=== PATIENT | male | born 1950 | race Caucasian/White ===

== ENCOUNTER 2019-09-25 11:00 | Outpatient (RCR) | payer SELFPAY | END 2019-10-25 00:01 | LOC: CR 11:00 | PROVIDERS: Family Provider Family Medicine; PCP Family Medicine; Visit Provider Family Medicine | DX: I25.2 Old myocardial infarction (principal) ==

== ENCOUNTER 2019-11-02 13:55 | Outpatient (RCR) | payer SELFPAY | END 2019-11-25 23:59 | disposition home or self-care (01) | LOC: CR 13:55 | PROVIDERS: Family Provider Family Medicine; PCP Family Medicine; Referring Provider Internal Medicine Cardiovascular Disease; Visit Provider Internal Medicine Cardiovascular Disease | DX: I25.2 Old myocardial infarction (principal) ==

== ENCOUNTER 2019-11-28 14:51 | Outpatient (RCR) | payer SELFPAY | END 2019-12-24 23:59 | disposition home or self-care (01) | LOC: CR 14:51 | PROVIDERS: Family Provider Family Medicine; PCP Family Medicine; Referring Provider Internal Medicine Cardiovascular Disease; Visit Provider Internal Medicine Cardiovascular Disease | DX: I25.2 Old myocardial infarction (principal) ==

== ENCOUNTER 2019-12-27 08:34 | Outpatient (RCR) | payer SELFPAY | END 2020-01-24 23:59 | disposition home or self-care (01) | LOC: CR 08:34 | PROVIDERS: Family Provider Family Medicine; PCP Family Medicine; Referring Provider Internal Medicine Cardiovascular Disease; Visit Provider Internal Medicine Cardiovascular Disease | DX: I25.2 Old myocardial infarction (principal) ==

== ENCOUNTER 2020-02-28 10:02 | Outpatient (CLI) | payer MEDICARE, OTHER, SELFPAY ==
--- NOTE | 2020-02-28 10:46 | XR_ITS ---
WS: [id number] XR KUB [id number] REASON FOR EXAM: RENAL CALCULI FINDINGS: The small 3 mm stone in the left kidney has not changed in position since earlier exam of A pril 2017. There is degenerate changes throughout the lumbar spine. There is nonspecific gas and fecal stasis throughout the colon. No air-fluid levels. The bony pelvis was normal. XR/XR KUB [id number] IMPRESSION: Unchanged small calcified density in the left kidney
== END 2020-02-28 10:03 | disposition home or self-care (01) ==
LOC: RAD 10:05
PROVIDERS: Family Provider Family Medicine; PCP Family Medicine; Visit Provider Urology
DX: N20.0 Calculus of kidney (principal); N20.9 Urinary calculus, unspecified
CPT/HCPCS: 74018; 81001

== ENCOUNTER 2020-03-26 15:15 | Outpatient (RCR) | payer SELFPAY | END 2020-04-24 23:59 | disposition home or self-care (01) | LOC: CR 15:15 | PROVIDERS: Family Provider Family Medicine; PCP Family Medicine; Referring Provider Internal Medicine Cardiovascular Disease; Visit Provider Internal Medicine Cardiovascular Disease | DX: I25.2 Old myocardial infarction (principal) ==

== ENCOUNTER 2020-03-27 11:01 | Outpatient (CLI) | payer MEDICARE, OTHER, SELFPAY ==
--- NOTE | 2020-03-27 | CT_ITS ---
WS: [id number] CT HEAD WITH AND WITHOUT CONTRAST HISTORY: NEW ONSET OF LOREDO'S WHILE ON DOAC TECHNIQUE: Noncontrast 2.5 mm axial images obtained from the vertex to the skull base. Additional derrell ging performed at 2.5 mm axial images status post IV contrast. Bone and soft tissue windows are revie wed. All CT scans at [facility] use at least one of these dose optimization techniques: a utomated exposure control; mA and/or kV adjustment per patient size (includes targeted exams where do se is matched to clinical indication); or iterative reconstruction. CONTRAST: Visipaque 320; 95 mL IV. DLP: 1851.82 mGycm COMPARISON: None available. No acute intracranial hemorrhage, edema or midline shift. Very mild atrophy and chronic microvascular ischemic disease. No prior infarcts. No enhancing mass or vascular malformations identified. Dural venous sinuses are normally enhancing. There is mild ectasia of the vessels in the [place]. No aneurysm is identified. Poor opacifi cation of the distal RIGHT vertebral artery. This may be due to the motion artifact. Paranasal sinuses as visualized: Clear. Mastoid air cells: Clear. Calvarium and scalp: Intact. CT/CT head wo/w con [id number] IMPRESSION: 1. No acute intracranial hemorrhage or mass. 2. Mild atrophy and mild chronic microvascular ischemic disease. 3. Evaluation of the [place] and distal vertebral arteries limited by motion artifact. No abnormality identified.
[2020-03-27 12:18] LABS: Blood Urea Nitrogen 13 mg/dL (8-23)
[2020-03-27] MEDS: iodixanol 320 mg/mL 100mL Btl IV (12:19)
== END 2020-03-27 11:02 | disposition home or self-care (01) ==
LOC: RADWPI 11:06
PROVIDERS: Family Provider Family Medicine; PCP Family Medicine; Visit Provider Family Medicine
DX: R51 Headache (principal); I25.9 Chronic ischemic heart disease, unspecified; G31.9 Degenerative disease of nervous system, unspecified
CPT/HCPCS: 70470; 82565; 84520; Q9967

== ENCOUNTER 2020-04-25 | Outpatient (RCR) | payer SELFPAY | END 2020-05-25 23:00 | disposition home or self-care (01) | LOC: CR | PROVIDERS: Family Provider Family Medicine; PCP Family Medicine; Referring Provider Internal Medicine Cardiovascular Disease; Visit Provider Internal Medicine Cardiovascular Disease | DX: I25.2 Old myocardial infarction (principal) ==

== ENCOUNTER 2020-05-29 14:38 | Outpatient (RCR) | payer SELFPAY | END 2020-06-25 23:59 | disposition home or self-care (01) | LOC: CR 14:38 | PROVIDERS: Family Provider Family Medicine; PCP Family Medicine; Referring Provider Internal Medicine Cardiovascular Disease; Visit Provider Internal Medicine Cardiovascular Disease | DX: I25.2 Old myocardial infarction (principal) ==

== ENCOUNTER 2020-06-26 14:58 | Outpatient (RCR) | payer SELFPAY | END 2020-07-25 23:59 | disposition home or self-care (01) | LOC: CR 14:58 | PROVIDERS: Family Provider Family Medicine; PCP Family Medicine; Referring Provider Internal Medicine Cardiovascular Disease; Visit Provider Internal Medicine Cardiovascular Disease | DX: I25.2 Old myocardial infarction (principal) ==

== ENCOUNTER 2020-07-13 15:21 | Inpatient (IN) | payer MEDICARE, OTHER, SELFPAY ==
[2020-07-13] VITALS (12 sets, daily range): BP systolic 100–148; BP diastolic 68–86; PULSE 59–84; RESP 17–32; TEMP 36.6–37.4; O2SAT 91–94; BMI 27.6
--- NOTE | 2020-07-13 15:30 | XRR_ITS ---
PROCEDURE INFORMATION: Exam: XR Chest, 1 View Exam date and time: 07/13/2020 3:52 PM Age: 70 years old Clinical indication: Dyspnea; Patient HX: Covid symptoms TECHNIQUE: Imaging protocol: XR of the chest Views: 1 view. COMPARISON: CR Chest 1 [place] [id number] 08/24/2017 8:27 AM FINDINGS: Lungs: Parenchymal densities seen in the left lower lobe and in the right mid lung field these findings are new since prior examination and are consistent with pneumonia Pleural space: Unremarkable. No pleural effusion. No pneumothorax. Heart/Mediastinum: Unremarkable. No cardiomegaly. Bones/joints: Unremarkable. XR/XR chest 1V portable [id number] IMPRESSION: Bilateral pneumonia as noted.
--- NOTE | 2020-07-13 15:32 | ECG_ITS ---
[facility] Test Date: 2020-07-13 Pat Name: Alejandro Green Department: Room: Gender: Male [employer] Winder: : 1950 Requested By: Brenda Hua Order Number: [id number] Hilario MD: Deborah Ann M.D. Measurements Intervals [place] Rate: 84 P: 33 [place]: 140 QRS: -35 QRSD: 93 T: 52 QT: 390 QTc: 461 Interpretive Statements SINUS RHYTHM WITH FREQUENT VENTRICULAR PREMATURE COMPLEXES LEFT AXIS DEVIATION INCOMPLETE RIGHT BUNDLE BRANCH BLOCK MINIMAL VOLTAGE CRITERIA FOR LVH, CONSIDER NORMAL VARIANT MINIMAL ST DEPRESSION [0.025+ mV ST DEPRESSION] Compared to ECG 08/24/2017 12:01:14 Ventricular premature complex(es) now present ST (T wave) deviation now present Sinus bradycardia no longer present Electronically Signed On 07-14-2020 8:17:06 CDT by Deborah Ann M.D. [id number]
--- NOTE | 2020-07-13 15:38 | ED_ITS ---
HPI - SOB/Dyspnea General: Chief Complaint: Shortness of Breath/Dyspnea Stated Complaint: SOB/ POSSIBLE COVID Time Seen by Provider: 07/13/20 15:27 Source: patient and EMS Mode of arrival: EMS Limitations: no limitations History of Present Illness: HPI Narrative: Mr. Goodman is a nice 70-year-old male brought in from home with report of shortness of breath. Patient's is currently sick with the COVID-19 virus. Patient states he has a cough, sore throat and is short of breath. He also has nausea vomiting and diarrhea. He denies any abdominal pain. Symptoms been present for the past 5 days. He states they are getting progressively worse. Patient denies any fever that he is aware of. EMS reports that when they arrived and checked the patient's pulse ox he was 83% on room air. Patient states when he exerts himself his symptoms are worse. Associated symptoms: Deny abdominal pain, chest congestion, chest pain, diaphoresis, dizziness, extremity pain, fever(s), hemoptysis, lightheadedness, nausea, orthopnea, palpitations, syncope or vomiting Review of Systems Const: Reports: malaise; Denies: fever(s), chills, body aches, fatigue or diaphoresis Eyes: Denies: change in vision, blurry vision, photophobia, eye discomfort, eye discharge, eye redness or yellow eyes ENMT: Denies: throat pain, odynophagia, hoarseness, swelling of lips/tongue, ear or mastoid pain, ear discharge, change in hearing or nasal discharge Card: Denies: chest pain, palpitations, irregular heart rhythm, edema, lightheadedness, syncope, pre-syncope, dyspnea on exertion or orthopnea Resp: Reports: dyspnea and non-productive cough; Denies: productive cough, wheezing, hemoptysis or chest congestion GI: Denies: abdominal pain, nausea, vomiting, hematemesis, coffee ground emesis, heartburn, diarrhea, constipation, GI cramping, hematochezia or melena : Denies: flank pain, dysuria, urinary frequency, urinary urgency or hematuria Musc: Denies: neck pain, back pain, extremity pain, extremity swelling, joint pain, joint swelling, joint redness, joint warmth or joint stiffness Skin/Breast: Denies: rash, pruritus, erythema, skin pain or skin tenderness Neuro: Denies: headache(s), numbness in extremities, weakness in extremities, sensory changes, lack of coordination, difficulty walking, dizziness, vertigo, confusion, Slurred speech present or seizure-like activity Joshua/Lymph: Denies: easy bruising, easy bleeding, petechiae, purpura or enlarged lymph nodes All/Imm: Denies: urticaria, throat swelling, tongue swelling, facial swelling or acute wheezing PFSH ED PFSH: Medical History Atrial fibrillation Bradycardia CAD (coronary artery disease) Hyperlipidemia Hypertension Urolithiasis Surgical History H/O shoulder surgery History of lithotripsy Hx of tonsillectomy Family History Father , AT AGE 65 Cirrhosis of liver Mother Hypertension CHF (congestive heart failure) Diabetes Other CAD (coronary artery disease) Social History Smoking and tobacco status: former smoker Alcohol intake: current Alcohol intake frequency: 0-2 Drinks per Day Alcohol type: beer Marital status: Current occupational status: retired History of recent travel: No Physical Exam Const: COMMON NORMALS: no acute distress, patient oriented x3, no limitations and alert GENERAL APPEARANCE: cooperative HENMT: COMMON NORMALS: normocephalic, atraumatic, external ears normal, EAC's normal and Normal external nose present HEAD & SCALP: normal to inspection, normocephalic and atraumatic FACE & SINUS: normal facial exam and face symmetric NOSE: Normal external nose present and Normal nares present EXTERNAL EAR: Yes external ears normal EXTERNAL AUDITORY CANAL: EAC's normal MOUTH: Normal oral and palatal mucosa present, lip normal and tongue normal Eye: COMMON NORMALS: Equal, round and reactive pupils present and conjunctivae normal GENERAL EYE: appearance normal, both eyes and all related structures ALIGNMENT: Yes alignment normal PERIORBITAL: periorbital findings normal EYELID: eyelids normal CONJUNCTIVA: Yes conjunctivae normal SCLERA: sclerae normal PUPIL: Yes Equal, round and reactive pupils present Neck/C-Spine: COMMON NORMALS: full ROM, no lymphadenopathy, supple, no meningeal signs and no JVD GENERAL: Yes normal visual inspection and Yes trachea midline Chest: COMMONS NORMALS: normal inspection of the chest and normal palpation of entire chest wall Resp: COMMON NORMALS: normal respiratory effort, No retractions, No use of accessory muscles and clear to auscultation bilaterally EFFORT & INSPECTION: Yes able to speak in complete sentences and Yes symmetric chest movement AUSCULTATION: clear to auscultation bilaterally, no crackles, no rales, no rhonchi and no wheezes Cardio: COMMON NORMALS: no JVD, regular rate, regular rhythm, S1 normal heart sound present and S2 normal heart sound present RATE: regular rate RHYTHM: regular rhythm HEART SOUNDS: S1 normal heart sound present, S2 normal heart sound present, no click, no gallops, no murmurs and no rubs GI: COMMON NORMALS: Soft to palpation and No hepatosplenomegaly present PALPATION: Yes Soft to palpation, No Tenderness to palpation present (GI), No Guarding due to palpation present (GI), No Rigid due to palpation, Yes No hepatosplenomegaly present, No Hernia present, No Palpable mass present and No Pulsatile mass present : COMMON NORMALS: Yes no CVA tenderness BLADDER/KIDNEY EXAM: Yes no CVA tenderness Back/Pelvis: COMMON NORMALS: no CVA tenderness, thoracic and lumbar spine normal to inspection, no thoracic nor lumbar tenderness and thoraco-lumbar ROM normal Extremity: COMMON NORMALS: normal to inspection, full ROM, capillary refill normal, no joint enlargement, no clubbing, cyanosis or edema and no calf tenderness Neuro: COMMON NORMALS: patient oriented x3, CN's II-XII intact bilaterally, moves all extremities, no focal motor deficits and no sensory deficits noted SENSORIUM/ORIENTATION: Yes alert MENINGEAL SIGNS: Yes no meningeal signs SPEECH: speech normal Psych: COMMON NORMALS: mental status grossly normal, Normal thought process present, cooperative, normal affect, speech normal and activity/motor behavior normal SPEECH: Yes normal speech THOUGHT PROCESS: Normal thought process present Skin: COMMON NORMALS: no rashes or lesions noted, turgor normal, no jaundice, no petechiae and no mottling GENERAL SKIN EXAM: no rashes or lesions noted and turgor normal Course Vital Signs: Vital signs: Vital Signs Temperature 99.3 F 07/13/20 15:23 Pulse Rate 79 07/13/20 16:42 Respiratory Rate 22 H 07/13/20 16:42 Blood Pressure 148/77 07/13/20 16:42 Pulse Oximetry 93 07/13/20 16:42 MDM - SOB/Dyspnea MDM Narrative: Medical decision making narrative: The case was reviewed with Dr. Arciniega, he agrees to come admit to the viral ICU. Lab Data: Attestation: I reviewed the patient's lab results. Labs: Lab Results 07/13/20 07/13/20 07/13/20 Range/Units 15:29 15:29 15:29 WBC 6.2 (4.0-10.0) 10^3/ uL RBC 5.55 H (4.1-5.3) 10^6/u L Hgb 16.6 (11.7-16.6) g/dL Hct 50.8 (42.0-52.0) % MCV 91.5 (80-94) fL MCH 29.9 (28.0-34.0) pg MCHC 32.7 (30.0-36.0) g/dL RDW 12.7 (12.1-15.1) % Plt Count 107 L (130-400) 10^3/c mm MPV 11.9 H (7.4-10.4) fL Neut % (Auto) 62.0 % Lymph % (Auto) 28.5 % [place] % (Auto) 9.0 % Eos % (Auto) 0.0 % Baso % (Auto) 0.0 % Neut # (Auto) 3.84 (1.8-7.7) 10^3/u L Lymph # (Auto) 1.8 (0.8-4.8) 10^3/u L [place] # (Auto) 0.6 (0.2-0.9) 10^3/u L Eos # (Auto) 0.0 (0.0-0.8) 10^3/u L Baso # (Auto) 0.0 (0.0-0.1) 10^3/u L Nucleated RBC % (a uto) 0 % Nucleated RBCs # 0.0 /100WBC PT 19.20 H (12.1-14.9) SECO NDS INR 1.55 H (0.8-1.2) D-Dimer 0.42 (0-0.59) ug/mIFE U Specimen Type Sample Site ABG pH (7.35-7.45) ABG pCO2 (35-45) mmHg ABG pO2 (80.0-100.0) mmH g ABG HCO3 (22-26) mmol/L ABG O2 Saturation ABG Base Excess (-2.0-2.0) mmol/ L [place] Test A-a O2 Gradient (5-10) mmHg Hematocrit (42-52) % Hgb O2 Saturation (95-100) % Carboxyhemoglobin (0.4-20.1) %THgb Methemoglobin (0.4-1.5) % Total Hemoglobin (14-18) g/dL Ionized Calcium (1.1-1.4) mmol/L O2 Delivery Device O2 Liters/Min % FiO2 % Tidal Volume PEEP cmH20 Dolphin Researcher ID Sodium 135 L (136-145) mmol/L Potassium 3.8 (3.5-5.1) mmol/L Chloride 99 (98-107) mmol/L Carbon Dioxide 21 L (22-29) mmol/L Anion Gap 18.8 (5-19) BUN 17 (8-23) mg/dL Creatinine 1.4 H (0.7-1.2) mg/dL GFR Calculation 50.1 L (90-130) mL/min Glucose 144 H (65-115) mg/dL Calculated Osmolal ity 284 L (285-295) mOsm/k g Lactic Acid (0.5-2.2) mmol/L Calcium 9.0 (8.5-10.5) mg/dL Magnesium 1.8 (1.7-2.3) mg/dL Total Bilirubin 0.7 (0.15-1.2) mg/dL AST 39 (0-40) U/L ALT 20 (0-41) U/L Alkaline Phosphata se 36 L (40-130) IU/L Creatine Kinase 261 (39-308) U/L Troponin T Baselin e (0-15) ng/L Total Protein 7.2 (6.6-8.7) g/dL Albumin 4.0 (3.5-5.2) g/dL Globulin 3.2 (1.3-4.6) g/dL Influenza Type A A g (Negative) Influenza Type B A g (Negative) SARS-CoV-2 Ag (Rap id) (Negative) 07/13/20 07/13/20 07/13/20 Range/Units 15:29 15:32 16:14 WBC (4.0-10.0) 10^3/ uL RBC (4.1-5.3) 10^6/u L Hgb (11.7-16.6) g/dL Hct (42.0-52.0) % MCV (80-94) fL MCH (28.0-34.0) pg MCHC (30.0-36.0) g/dL RDW (12.1-15.1) % Plt Count (130-400) 10^3/c mm MPV (7.4-10.4) fL Neut % (Auto) % Lymph % (Auto) % [place] % (Auto) % Eos % (Auto) % Baso % (Auto) % Neut # (Auto) (1.8-7.7) 10^3/u L Lymph # (Auto) (0.8-4.8) 10^3/u L [place] # (Auto) (0.2-0.9) 10^3/u L Eos # (Auto) (0.0-0.8) 10^3/u L Baso # (Auto) (0.0-0.1) 10^3/u L Nucleated RBC % (a uto) % Nucleated RBCs # /100WBC PT (12.1-14.9) SECO NDS INR (0.8-1.2) D-Dimer (0-0.59) ug/mIFE U Specimen Type Arterial Sample Site Radial, right ABG pH 7.43 (7.35-7.45) ABG pCO2 30.4 L (35-45) mmHg ABG pO2 80.2 (80.0-100.0) mmH g ABG HCO3 20.2 L (22-26) mmol/L ABG O2 Saturation 97.3 ABG Base Excess -2.8 L (-2.0-2.0) mmol/ L Nabor Test Pos A-a O2 Gradient 14.3 H (5-10) mmHg Hematocrit 49.6 (42-52) % Hgb O2 Saturation 96.1 (95-100) % Carboxyhemoglobin 0.6 (0.4-20.1) %THgb Methemoglobin 0.6 (0.4-1.5) % Total Hemoglobin 16.2 (14-18) g/dL Ionized Calcium 1.1 (1.1-1.4) mmol/L O2 Delivery Device Nc O2 Liters/Min 3.0 % FiO2 32.0 % Tidal Volume 0.50 PEEP 10.0 cmH20 Dolphin Researcher ID Ed Sodium 137.0 (136-145) mmol/L Potassium 3.5 (3.5-5.1) mmol/L Chloride (98-107) mmol/L Carbon Dioxide (22-29) mmol/L Anion Gap (5-19) BUN (8-23) mg/dL Creatinine (0.7-1.2) mg/dL GFR Calculation (90-130) mL/min Glucose 143.0 H (65-115) mg/dL Calculated Osmolal ity (285-295) mOsm/k g Lactic Acid 1.5 (0.5-2.2) mmol/L Calcium (8.5-10.5) mg/dL Magnesium (1.7-2.3) mg/dL Total Bilirubin (0.15-1.2) mg/dL AST (0-40) U/L ALT (0-41) U/L Alkaline Phosphata se (40-130) IU/L Creatine Kinase (39-308) U/L Troponin T Baselin e 21 H (0-15) ng/L Total Protein (6.6-8.7) g/dL Albumin (3.5-5.2) g/dL Globulin (1.3-4.6) g/dL Influenza Type A A g (Negative) Influenza Type B A g (Negative) SARS-CoV-2 Ag (Rap id) (Negative) 07/13/20 07/13/20 Range/Units 16:39 16:39 WBC (4.0-10.0) 10^3/ uL RBC (4.1-5.3) 10^6/u L Hgb (11.7-16.6) g/dL Hct (42.0-52.0) % MCV (80-94) fL MCH (28.0-34.0) pg MCHC (30.0-36.0) g/dL RDW (12.1-15.1) % Plt Count (130-400) 10^3/c mm MPV (7.4-10.4) fL Neut % (Auto) % Lymph % (Auto) % [place] % (Auto) % Eos % (Auto) % Baso % (Auto) % Neut # (Auto) (1.8-7.7) 10^3/u L Lymph # (Auto) (0.8-4.8) 10^3/u L [place] # (Auto) (0.2-0.9) 10^3/u L Eos # (Auto) (0.0-0.8) 10^3/u L Baso # (Auto) (0.0-0.1) 10^3/u L Nucleated RBC % (a uto) % Nucleated RBCs # /100WBC PT (12.1-14.9) SECO NDS INR (0.8-1.2) D-Dimer (0-0.59) ug/mIFE U Specimen Type Sample Site ABG pH (7.35-7.45) ABG pCO2 (35-45) mmHg ABG pO2 (80.0-100.0) mmH g ABG HCO3 (22-26) mmol/L ABG O2 Saturation ABG Base Excess (-2.0-2.0) mmol/ L Nabor Test A-a O2 Gradient (5-10) mmHg Hematocrit (42-52) % Hgb O2 Saturation (95-100) % Carboxyhemoglobin (0.4-20.1) %THgb Methemoglobin (0.4-1.5) % Total Hemoglobin (14-18) g/dL Ionized Calcium (1.1-1.4) mmol/L O2 Delivery Device O2 Liters/Min % FiO2 % Tidal Volume PEEP cmH20 Dolphin Researcher ID Sodium (136-145) mmol/L Potassium (3.5-5.1) mmol/L Chloride (98-107) mmol/L Carbon Dioxide (22-29) mmol/L Anion Gap (5-19) BUN (8-23) mg/dL Creatinine (0.7-1.2) mg/dL GFR Calculation (90-130) mL/min Glucose (65-115) mg/dL Calculated Osmolal ity (285-295) mOsm/k g Lactic Acid (0.5-2.2) mmol/L Calcium (8.5-10.5) mg/dL Magnesium (1.7-2.3) mg/dL Total Bilirubin (0.15-1.2) mg/dL AST (0-40) U/L ALT (0-41) U/L Alkaline Phosphata se (40-130) IU/L Creatine Kinase (39-308) U/L Troponin T Baselin e (0-15) ng/L Total Protein (6.6-8.7) g/dL Albumin (3.5-5.2) g/dL Globulin (1.3-4.6) g/dL Influenza Type A A g Negative (Negative) Influenza Type B A g Negative (Negative) SARS-CoV-2 Ag (Rap id) Positive H (Negative) Imaging Data^: CXR: Attestation: I personally reviewed and interpreted this imaging study as follows: My impression: Bilateral interstitial infiltrates. EKG Data^: EKG 1: Attestation: I personally reviewed and interpreted this EKG as follows: EKG Interpretation Date: 07/13/20 EKG interpretation time: 16:01 Interpretation: Normal sinus rhythm at 84 beats a minute, left axis deviation, LVH, incomplete right bundle branch block, no acute ST or T wave findings. Discharge Plan Discharge Patient Disposition: Admitted As Inpatient Clinical Impression: Viral pneumonia, COVID-19 virus infection Condition: Stable Prescriptions: No Action nitroglycerin [Nitrostat] 0.4 mg tablet, sublingual 0.4 mg SUBLINGUAL Q5M PRN (Reason: CHEST PAINS) RF: 0 atorvastatin [Lipitor] 40 mg tablet 40 mg PO QDAY RF: 0 ramipril 10 mg capsule 10 mg PO QDAY RF: 0 nitroglycerin [Nitro-Time] 6.5 mg capsule, extended release 6.5 mg PO BID RF: 0 amlodipine 10 mg tablet 10 mg PO .every other day RF: 0 fenofibrate nanocrystallized [Tricor] 48 mg tablet 48 mg PO .every other day Qty: 90 RF: 3 rivaroxaban [Xarelto] 20 mg tablet 20 mg PO DAILY Qty: 30 RF: 5 cetirizine 10 mg tablet 10 mg PO DAILY RF: 0 Aspirin Low Dose 81 mg Tablet,Delayed Release (Dr/Ec) 81 mg PO DAILY RF: 0 meclizine 25 mg tablet 25 mg PO TID RF: 0 fluticasone propionate 50 mcg/actuation spray,suspension See Rx Instructions .ROUTE .COMPLEX RF: 0 Referrals: Willie Fine Jr, MD [Primary Care Provider] - Coding Level of Care Code ED [employer] Associate for Chg Fwd Exam Comprehensive
[2020-07-13 15:39] LABS: Hematocrit 50.8 % (42.0-52.0); Hemoglobin 16.6 g/dL (11.7-16.6); Lymphocytes # 1.8 10^3/uL (0.8-4.8); Lymphocytes % 28.5 %; Mean Corpuscular HGB Conc 32.7 g/dL (30.0-36.0); Mean Corpuscular Hemoglobin 29.9 pg (28.0-34.0); Mean Corpuscular Volume 91.5 fL (80-94); Mean Platelet Volume 11.9 fL (7.4-10.4); Monocytes # 0.6 10^3/uL (0.2-0.9); Neutrophils # 3.84 10^3/uL (1.8-7.7); Nucleated Red Blood Cells % 0 %; Platelet Count 107 10^3/cmm (130-400); Red Blood Count 5.55 10^6/uL (4.1-5.3); Red Cell Distribution Width 12.7 % (12.1-15.1); White Blood Count 6.2 10^3/uL (4.0-10.0)
[2020-07-13 15:42] LABS: Blood Gas Allen Test Pos; Blood Gas Sample Site Radial, right; Blood Gas Sample Type Arterial
[2020-07-13 15:59] LABS: Alanine Aminotransferase 20 U/L (0-41); Alkaline Phosphatase 36 IU/L (40-130); Anion Gap 18.8 (5-19); Aspartate Amino Transferase 39 U/L (0-40); Blood Urea Nitrogen 17 mg/dL (8-23); Carbon Dioxide 21 mmol/L (22-29); Chloride 99 mmol/L (98-107); Creatine Phosphokinase 261 U/L (39-308); Globulin 3.2 g/dL (1.3-4.6); Glomerular Filtration Rate 50.1 mL/min (90-130); Glucose 144 mg/dL (65-115); INR 1.55 (0.8-1.2); Magnesium 1.8 mg/dL (1.7-2.3); Osmolality Calculated 284 mOsm/kg (285-295); Potassium 3.8 mmol/L (3.5-5.1); Sodium 135 mmol/L (136-145); Total Bilirubin 0.7 mg/dL (0.15-1.2); Total Protein 7.2 g/dL (6.6-8.7)
[2020-07-13 16:00] LABS: Troponin(5th) Baseline 21 ng/L (0-15)
[2020-07-13 16:03] LABS: D Dimer 0.42 ug/mIFEU (0-0.59)
[2020-07-13 16:12] LABS: ABG PCO2 30.4 mmHg (35-45); ABG PH Result 7.43 (7.35-7.45); Arterial Blood Gas Hematocrit 49.6 % (42-52); Base Excess ABG -2.8 mmol/L (-2.0-2.0); Carboxyhemoglobin 0.6 %THgb (0.4-20.1); HCO3 ABG 20.2 mmol/L (22-26); HGB O2 Sat 96.1 % (95-100); Ionized Calcium Level - ABG 1.1 mmol/L (1.1-1.4); Methemoglobin 0.6 % (0.4-1.5); Oxygen Saturation ABG 97.3; PO2 ABG 80.2 mmHg (80.0-100.0); Potassium Level - ABG 3.5 mmol/L (3.5-5.0); Total Hemoglobin 16.2 g/dL (14-18)
--- NOTE | 2020-07-13 16:18 | PC.NURSE ---
no report assumed care of pt.
[2020-07-13 16:19] LABS: Alveolar-Arterial Oxygen Gradi 14.3 mmHg (5-10); Blood Gas Operator Identificat ED; Oxygen Device NC
[2020-07-13 16:34] LABS: Lactic Sepsis W/Reflex 1.5 mmol/L (0.5-2.2)
[2020-07-13] MEDS: sodium chloride 0.9% 1,000 ML 100 ML IV (16:43)
[2020-07-13] MEDS: dexamethasone 10 mg/mL INJ IVP (16:43)
[2020-07-13 17:13] LABS: SARS Covid-2 Antigen Positive (Negative)
[2020-07-13 17:20] LABS: Influenza A by IFA Negative (Negative); Influenza B by IFA Negative (Negative)
--- NOTE | 2020-07-13 17:32 | ECG_ITS ---
[facility] Test Date: 2020-07-13 Pat Name: Alejandro Green Department: Room: ICU19 Gender: Male Foster Care Worker: : 1950 Requested By: Brenda Hua Order Number: [id number] Hilario MD: Deborah Ann M.D. Measurements Intervals [place] Rate: 73 P: 51 MS: 124 QRS: -33 QRSD: 106 T: 28 QT: 410 QTc: 452 Interpretive Statements SINUS RHYTHM WITH OCCASIONAL SUPRAVENTRICULAR PREMATURE COMPLEXES LEFT AXIS DEVIATION [QRS AXIS < -30] INCOMPLETE RIGHT BUNDLE BRANCH BLOCK MINIMAL VOLTAGE CRITERIA FOR LVH, CONSIDER NORMAL VARIANT Compared to ECG 07/13/2020 16:01:26 Ventricular premature complex(es) no longer present ST (T wave) deviation no longer present Electronically Signed On 07-14-2020 8:54:36 CDT by Deborah Ann M.D. [id number]
--- NOTE | 2020-07-13 17:42 | PM.HP ---
Providers/Chief Complaint Primary Care Provider: Willie Fine Jr, MD Chief Complaint: SOB/ POSSIBLE COVID History of Present Illness Alejandro Green is a 70 year old male with history of a COVID positive test at [facility] on Thursday. He reports he initially started with congestion, cough. He is now short of breath, nauseous, vomited, loose stool. He reports he has no energy. He states he has had fever at home. is admitted with Covid 19 pneumonia. He is still drinking fluids. P.o. intake has been decreased. Review of Systems General: Reports: 10 or more systems reviewed and unremarkable except in HPI and below Const: Reports: fever(s), chills, body aches, fatigue and malaise Eyes: Denies: change in vision ENMT: Denies: throat pain Card: Denies: chest pain Resp: Reports: dyspnea and non-productive cough GI: Reports: nausea, vomiting and diarrhea; Denies: abdominal pain : Denies: flank pain Musc: Denies: neck pain Skin/Breast: Denies: rash Neuro: Denies: headache(s) Psych: Denies: anxiety Endo: Denies: polyuria Joshua/Lymph: Denies: easy bruising All/Imm: Denies: urticaria Medications/Allergies Home Medications Medication Instructions Recorded Confirmed Last Taken Type amlodipine 10 mg tablet 10 mg PO .every other day tab 11/24/19 07/13/20 Unknown History atorvastatin 40 mg tablet 40 mg PO QDAY 11/24/19 07/13/20 07/12/20 History nitroglycerin 0.4 mg sublingual 0.4 mg SUBLINGUAL Q5M PRN 11/24/19 07/13/20 Unknown History tablet nitroglycerin 6.5 mg 6.5 mg PO BID 11/24/19 07/13/20 07/12/20 History capsule,extended release ramipril 10 mg capsule 10 mg PO QDAY 11/24/19 07/13/20 07/12/20 History fenofibrate nanocrystallized 48 mg 48 mg PO .every other day #90 tab 02/20/20 07/13/20 Unknown Rx tablet rivaroxaban 20 mg tablet 20 mg PO DAILY #30 tab 05/14/20 07/13/20 07/12/20 Rx aspirin [Aspirin Low Dose] 81 mg PO DAILY 09/07/13/20 07/12/20 History cetirizine 10 mg PO DAILY 07/13/20 07/13/20 07/12/20 History fluticasone propionate See Rx Instructions .ROUTE .COMPLEX 07/13/20 07/13/20 07/12/20 History meclizine 25 mg PO TID 07/13/20 07/13/20 07/12/20 History Allergies Allergy/AdvReac Type Severity Reaction Status Date / Time atenolol Allergy Unknown unknown Verified 02/28/20 11:09 hydrochlorothiazide Allergy Unknown Unknown Verified 02/28/20 11:09 Penicillins Allergy Unknown Unknown Verified 02/28/20 11:09 simvastatin [From Zocor] Allergy Unknown Unknown Verified 02/28/20 11:09 PFSH Acute PFSH: Medical History (Updated 07/13/20 @ 17:53 by Remberto Arciniega MD) Atrial fibrillation Bradycardia CAD (coronary artery disease) GERD (gastroesophageal reflux disease) Hyperlipidemia Hypertension Urolithiasis Surgical History (Updated 07/13/20 @ 17:46 by Remberto Arciniega MD) H/O heart artery stent H/O shoulder surgery History of lithotripsy Hx of tonsillectomy Family History Father , AT AGE 65 Cirrhosis of liver Mother Hypertension CHF (congestive heart failure) Diabetes Other CAD (coronary artery disease) Social History Smoking and tobacco status: former smoker Alcohol intake: current Alcohol intake frequency: 0-2 Drinks per Day Alcohol type: beer Marital status: Current occupational status: retired History of recent travel: No Vitals/I&O/Wt Last Vital Signs Temp 99.3 F 07/13/20 15:23 Pulse 79 07/13/20 16:42 Resp 22 H 07/13/20 16:42 BP 148/77 07/13/20 16:42 Pulse Ox 93 07/13/20 16:42 Weight last 48 hrs Weight 79.832 kg Physical Exam Narrative: EXAM NARRATIVE: General exam is a white male, in mild respiratory distress with tachypnea. 93% saturation on 2 L but respiratory rate approximately 20 HEENT: Atraumatic normocephalic pupils equally round. Oropharynx clear. Neck is supple no lymphadenopathy or thyromegaly Cardiovascular regular rate and rhythm without murmur, no S3 or S4 Lungs a few crackles bilaterally without wheezing Abdomen is soft nontender with positive bowel sounds. No obvious organomegaly was deferred Extremities no cyanosis clubbing or edema, cap refill brisk Skin without rash Neuro no focal deficits Data : 07/13/20 15:29 07/13/20 15:29 Other data: INR 1.55 D-dimer 0.42 ABG with pH of 7.43, PCO2 of 30, PO2 of 80 Troponin XX 1 LFTs largely normal Procalcitonin level pending CRP pending Chest x-ray with bilateral pneumonia, rather extensive EKG with sinus rhythm, left axis deviation, PVC, right bundle branch block(incomplete) and nonspecific ST-T wave changes A&P Assessment and plan (1) Pneumonia due to COVID-19 virus: Admission for supportive care Oxygen as needed. He is in mild to moderate distress requiring 2 L currently but still tachypneic Redesivir will be initiated along with dexamethasone 6 mg IV every 24 hours Initiation of Levaquin for concern of coinfection with bacterial pneumonia. Albuterol as needed Status: Acute (2) Acute respiratory failure: Supportive care with oxygen as above. Wean oxygen as tolerated Status: Acute (3) Acute kidney injury: Cautious hydration. I do not want him to fluid overload as this would worsen his respiratory status Repeat BMP in the morning Status: Acute Additional A&P Information Coronary artery disease, stable currently History of atrial fibrillation. Currently in sinus rhythm. On anticoagulation already. History of reflux. 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
[2020-07-13 18:08] LABS: Procalcitonin 0.14 ng/mL (0-0.5)
[2020-07-13 18:19] LABS: C Reactive Protein 92.2 mg/L (0.0-4.9); Lactate Dehydrogenase 368 U/L (135-225)
[2020-07-13] MEDS: sodium chloride 0.9% 1,000 ML 50 ML IV (18:44)
--- NOTE | 2020-07-13 20:21 | PC.NURSE ---
Xarelto Verified with pt that he did not take his xarelto yet and he stated he takes 20 mg of Xarelto in the evening. called inpt pharmacy to notify them on this.
[2020-07-13 20:33] LABS: Add Urine Microscopic? YES; Bilirubin Urine 1+ (Negative); Blood Urine 2+ (Negative); Glucose Urine UA Norm (Normal); Ketones Urine Negative (Negative); Leukocyte Esterase Urine Negative (Negative); Nitrate Urine Negative (Negative); Protein Urine Trace (Negative); Urine Appearance Clear (CLEAR); Urine Color Yellow (Yellow); Urobilinogen Urine 1 mg/dL (Negative); pH Urine 5 (5-7)
[2020-07-13 20:42] LABS: Amorphous Sediment Urine 1+ /hpf; Bacteria Urine TRACE /hpf; Mucus Urine 2+ /hpf; RBC Urine 0-4 /hpf (0-2); Squamous Epithelial Cell Urine 15-25 /hpf (0-5); WBC Urine 0-4 /hpf (0-5)
[2020-07-13 20:43] LABS: Add Urine Culture? No; Hyaline Casts Urine 0-4 /lpf
[2020-07-13] MEDS: levofloxacin-dextrose 5 % 750 MG/150 ML PREMIX 100 MG IV (21:30)
[2020-07-13] MEDS: rivaroxaban 10 mg Tablet 20 MG PO (21:30)
--- NOTE | 2020-07-13 21:32 | ECG_ITS ---
[facility] ED Test Date: 2020-07-13 Pat Name: Alejandro Green Department: Room: ICU19 Gender: Male Stations Superintendent: : [id number] Requested By: Brenda Hua Order Number: [id number] Hilario MD: Deborah Ann M.D. Measurements Intervals [place] Rate: 66 P: 42 AL: 150 QRS: -34 QRSD: 103 T: 22 QT: 436 QTc: 458 Interpretive Statements SINUS RHYTHM WITH OCCASIONAL SUPRAVENTRICULAR PREMATURE COMPLEXES MARKED LEFT AXIS DEVIATION [QRS AXIS < -30] MINIMAL VOLTAGE CRITERIA FOR LVH, CONSIDER NORMAL VARIANT [MEETS CRITERIA IN ONE OF: R(aVL), S(V1), R(V5), R(V5/V6)+S(V1)] Compared to ECG 07/13/2020 18:16:07 Incomplete right bundle-branch block no longer present Electronically Signed On 07-14-2020 8:43:16 CDT by Deborah Ann M.D. [id number]
[2020-07-13 22:53] LABS: Troponin 5 6HR 17.32 ng/L (0-15)
[2020-07-13 22:59] LABS: Troponin 5 6HR Delta -3.68 ng/L (0-12)
[2020-07-14] VITALS (24 sets, daily range): BP systolic 90–134; BP diastolic 53–77; PULSE 54–113; RESP 16–31; TEMP 36.5–36.8; O2SAT 90–95
[2020-07-14 04:03] LABS: Glucose Point of Care 245 mg/dL (70-110)
[2020-07-14 05:23] LABS: Hematocrit 49.5 % (42.0-52.0); Lymphocytes # 1.5 10^3/uL (0.8-4.8); Lymphocytes % 31.6 %; Mean Corpuscular HGB Conc 32.3 g/dL (30.0-36.0); Mean Corpuscular Volume 92.7 fL (80-94); Mean Platelet Volume 12.8 fL (7.4-10.4); Monocytes # 0.3 10^3/uL (0.2-0.9); Monocytes % 5.3 %; Neutrophils # 3.05 10^3/uL (1.8-7.7); Neutrophils % 62.7 %; Nucleated Red Blood Cells % 0 %; Platelet Count 106 10^3/cmm (130-400); Red Blood Count 5.34 10^6/uL (4.1-5.3); Red Cell Distribution Width 12.9 % (12.1-15.1); White Blood Count 4.9 10^3/uL (4.0-10.0)
[2020-07-14 05:58] LABS: Procalcitonin 0.19 ng/mL (0-0.5)
[2020-07-14 06:10] LABS: D Dimer 0.36 ug/mIFEU (0-0.59)
[2020-07-14 07:50] LABS: Glucose Point of Care 218 mg/dL (70-110)
--- NOTE | 2020-07-14 08:09 | PC.NURSE ---
temperature check nurse entered room and observed patient to be very diaphoretic with bed sheets saturated and shaking. nurse checked temp orally and could not get a reading. attempted auxiliary with no success. rectal temp of 98.1. finger stick glucose of 218. patient stated that he had a similar episode last night but this is not normal for him. vital sings WNL. will continue to monitor.
[2020-07-14] MEDS: ascorbic acid 500 mg Tablet PO (08:42)
[2020-07-14] MEDS: dexamethasone 4 mg/mL INJ 6 MG IVP (08:43)
[2020-07-14] MEDS: zinc gluconate 50 mg Tablet PO (08:43)
[2020-07-14] MEDS: pantoprazole DR 40 mg Tablet PO (08:43)
[2020-07-14] MEDS: aspirin 81 mg EC Tablet PO (08:43)
[2020-07-14] MEDS: lisinopril 20 mg Tablet 40 MG PO (08:43)
[2020-07-14] MEDS: atorvastatin 40 mg Tablet PO (08:43)
[2020-07-14 11:52] LABS: Alanine Aminotransferase 20 U/L (0-41); Albumin Level 3.7 g/dL (3.5-5.2); Alkaline Phosphatase 33 IU/L (40-130); Anion Gap 20.9 (5-19); Aspartate Amino Transferase 41 U/L (0-40); Blood Urea Nitrogen 23 mg/dL (8-23); C Reactive Protein 112.8 mg/L (0.0-4.9); Calcium 8.6 mg/dL (8.5-10.5); Carbon Dioxide 19 mmol/L (22-29); Chloride 102 mmol/L (98-107); Globulin 3.2 g/dL (1.3-4.6); Glomerular Filtration Rate 66.2 mL/min (90-130); Glucose 283 mg/dL (65-115); Osmolality Calculated 300 mOsm/kg (285-295); Potassium 3.9 mmol/L (3.5-5.1); Sodium 138 mmol/L (136-145); Total Bilirubin 0.5 mg/dL (0.15-1.2); Total Protein 6.9 g/dL (6.6-8.7)
--- NOTE | 2020-07-14 14:01 | P.PN_ITS ---
Subjective Subjective: Interval history: Allne reports he still feels very weak. Still requiring oxygen. No chest pain. Medications: Reviewed: Yes Vitals/I&O/Wt Last Vital Signs Temp 98.1 F 07/14/20 07:00 Pulse 62 07/14/20 12:00 Resp 20 H 07/14/20 12:00 BP 122/68 07/14/20 12:00 Pulse Ox 93 07/14/20 12:00 07/13/20 07/14/20 07/14/20 22:59 06:59 14:59 Intake Total 100 / 100 150 / 250 600 / 600 Balance 100 / 100 150 / 250 600 / 600 Weight last 48 hrs Weight 79.832 kg Physical Exam Narrative: EXAM NARRATIVE: General exam is a white male, no distress Cardiovascular regular rate and rhythm without murmur, no S3 or S4 Lungs a few crackles bilaterally without wheezing Abdomen is soft nontender with positive bowel sounds. No obvious organomegaly Extremities no cyanosis clubbing or edema, cap refill brisk Data : 07/14/20 04:20 07/14/20 04:20 A&P Assessment and plan (1) Pneumonia due to COVID-19 virus: Continue supportive care Continue oxygen, wean as tolerated Continue Redesivir, dexamethasone 6 mg IV every 24 hours Continue Levaquin for concern of coinfection with bacterial pneumonia. Albuterol as needed Status: Acute (2) Acute respiratory failure: Supportive care with oxygen as above. Wean oxygen as tolerated Status: Acute (3) Acute kidney injury: Fluids discontinued. Renal function at baseline Status: Acute Additional A&P Information Elevated glucose. Hemoglobin A1c ordered. Start sliding scale insulin. Coronary artery disease, stable currently History of atrial fibrillation. Currently in sinus rhythm. On anticoagulation already. History of reflux. Protonix Hyperlipidemia, continue statin Hypertension, continue antihypertensives History of renal stones Full code Xarelto will suffice for DVT prophylaxis Attestations Medical Necessity Statement*: Needs continued hospitalization, for IV antiviral and dexamethasone for Covid 19 pneumonia. 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
[2020-07-14 14:31] LABS: Estmated Average Glucose 146; Hemoglobin A1C 6.7 % (4.0-6.0)
[2020-07-14 16:55] LABS: Glucose Point of Care 230 mg/dL (70-110)
[2020-07-14 20:38] LABS: Glucose Point of Care 213 mg/dL (70-110)
[2020-07-14] MEDS: levofloxacin-dextrose 5 % 750 MG/150 ML PREMIX 150 MG IV (21:13)
[2020-07-14] MEDS: rivaroxaban 10 mg Tablet 20 MG PO (21:14)
[2020-07-14] MEDS: ondansetron 2 mg/ML SDV 2 mL 4 MG IVP (22:11)
[2020-07-15] VITALS (27 sets, daily range): BP systolic 94–128; BP diastolic 50–79; PULSE 52–81; RESP 14–25; TEMP 36.5–37.1; O2SAT 87–97
--- NOTE | 2020-07-15 03:45 | PC.NURSE ---
OXYGEN REQUIREMENT Patient is continuing to desaturate with oxygen at 87-88% on 5L/NC. Changed nasal cannula to highflow and turned oxygen up to 10L via high-flow cannula. Will continue to monitor.
[2020-07-15] MEDS: ondansetron 2 mg/ML SDV 2 mL 4 MG IVP (03:51)
[2020-07-15] MEDS: albuterol 8 gm MDI 2 PUFF INHALATION ×4 (03:53→21:48)
[2020-07-15 05:27] LABS: Basophils % 0.1 %; Eosinophils % 0.1 %; Hematocrit 47.1 % (42.0-52.0); Hemoglobin 15.4 g/dL (11.7-16.6); Lymphocytes # 2.6 10^3/uL (0.8-4.8); Lymphocytes % 16.1 %; Mean Corpuscular HGB Conc 32.7 g/dL (30.0-36.0); Mean Corpuscular Hemoglobin 30.1 pg (28.0-34.0); Mean Platelet Volume 12.6 fL (7.4-10.4); Monocytes % 5.9 %; Neutrophils # 12.37 10^3/uL (1.8-7.7); Neutrophils % 76.6 %; Nucleated Red Blood Cells % 0 %; Platelet Count 146 10^3/cmm (130-400); Red Blood Count 5.12 10^6/uL (4.1-5.3); White Blood Count 16.2 10^3/uL (4.0-10.0)
[2020-07-15 05:49] LABS: Alanine Aminotransferase 22 U/L (0-41); Albumin Level 3.4 g/dL (3.5-5.2); Alkaline Phosphatase 45 IU/L (40-130); Aspartate Amino Transferase 51 U/L (0-40); Blood Urea Nitrogen 31 mg/dL (8-23); Calcium 8.4 mg/dL (8.5-10.5); Carbon Dioxide 22 mmol/L (22-29); Chloride 105 mmol/L (98-107); Globulin 2.9 g/dL (1.3-4.6); Glomerular Filtration Rate 66.2 mL/min (90-130); Glucose 154 mg/dL (65-115); Osmolality Calculated 298 mOsm/kg (285-295); Sodium 139 mmol/L (136-145); Total Bilirubin 0.4 mg/dL (0.15-1.2); Total Protein 6.3 g/dL (6.6-8.7)
[2020-07-15 07:18] LABS: Glucose Point of Care 143 mg/dL (70-110)
[2020-07-15] MEDS: dexamethasone 4 mg/mL INJ 6 MG IVP (08:29)
[2020-07-15] MEDS: atorvastatin 40 mg Tablet PO (08:29)
[2020-07-15] MEDS: pantoprazole DR 40 mg Tablet PO (08:29)
[2020-07-15] MEDS: zinc gluconate 50 mg Tablet PO (08:29)
[2020-07-15] MEDS: ascorbic acid 500 mg Tablet PO (08:29)
[2020-07-15] MEDS: lisinopril 20 mg Tablet 40 MG PO (08:29)
[2020-07-15] MEDS: fenofibrate 48 mg Tablet PO (08:31)
[2020-07-15 11:29] LABS: Glucose Point of Care 195 mg/dL (70-110)
--- NOTE | 2020-07-15 13:28 | P.PN_ITS ---
Subjective Subjective: Interval history: Allen reports he is more short of breath than yesterday but comfortable at the moment. Medications: Reviewed: Yes Vitals/I&O/Wt Last Vital Signs Temp 97.8 F 07/15/20 09:00 Pulse 73 07/15/20 12:00 Resp 24 H 07/15/20 10:00 BP 128/79 07/15/20 12:00 Pulse Ox 93 07/15/20 12:00 07/14/20 07/15/20 07/15/20 22:59 06:59 14:59 Intake Total 300 / 900 450 / 450 Output Total 600 / 600 Balance 300 / 900 -150 / -150 Weight last 48 hrs Weight 79.832 kg Physical Exam Narrative: EXAM NARRATIVE: General exam is a white male, no distress Cardiovascular regular rate and rhythm without murmur, no S3 or S4 Lungs a few crackles bilaterally without wheezing Abdomen is soft nontender with positive bowel sounds. No obvious organomegaly Extremities no cyanosis clubbing or edema, cap refill brisk Data : 07/15/20 04:15 07/15/20 04:15 A&P Assessment and plan (1) Pneumonia due to COVID-19 virus: Continue supportive care He is now on heated high flow, rate of 10 and I believe 45% FiO2 Continue Redesivir, dexamethasone 6 mg IV every 24 hours Continue Levaquin for concern of coinfection with bacterial pneumonia. Albuterol as needed Prone as much as possible IS Flutter valve Status: Acute (2) Acute respiratory failure: Supportive care with oxygen as above. Wean oxygen as tolerated Status: Acute (3) Acute kidney injury: Fluids discontinued. Renal function at baseline Status: Acute Additional A&P Information Elevated glucose. Hemoglobin A1c 6.7. Start sliding scale insulin. Coronary artery disease, stable currently History of atrial fibrillation. Currently in sinus rhythm. On anticoagulation already. History of reflux. Protonix Hyperlipidemia, continue statin Hypertension, continue antihypertensives History of renal stones Full code Xarelto will suffice for DVT prophylaxis Attestations Medical Necessity Statement*: Needs continued hospitalization for IV dexamethasone and antiviral for Covid 19 pneumonia. 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
[2020-07-15 16:43] LABS: Glucose Point of Care 189 mg/dL (70-110)
[2020-07-15] MEDS: levofloxacin-dextrose 5 % 750 MG/150 ML PREMIX 150 MG IV (21:56)
[2020-07-15] MEDS: rivaroxaban 10 mg Tablet 20 MG PO (21:56)
[2020-07-15 22:52] LABS: Glucose Point of Care 254 mg/dL (70-110)
[2020-07-16] VITALS (29 sets, daily range): BP systolic 89–145; BP diastolic 59–86; PULSE 51–92; RESP 0–32; TEMP 36.4–37.1; O2SAT 86–95
--- NOTE | 2020-07-16 05:52 | PC.NURSE ---
Pt placed in prone position 4 times through the night. Pt O2 sats low 90's on 8LNC.
[2020-07-16 07:02] LABS: Basophils % 0.1 %; Hematocrit 47.4 % (42.0-52.0); Hemoglobin 15.2 g/dL (11.7-16.6); Lymphocytes % 14.5 %; Mean Corpuscular HGB Conc 32.1 g/dL (30.0-36.0); Mean Corpuscular Hemoglobin 29.7 pg (28.0-34.0); Mean Corpuscular Volume 92.8 fL (80-94); Mean Platelet Volume 12.4 fL (7.4-10.4); Monocytes # 0.8 10^3/uL (0.2-0.9); Monocytes % 6.1 %; Neutrophils # 10.57 10^3/uL (1.8-7.7); Neutrophils % 77.8 %; Nucleated Red Blood Cells % 0 %; Platelet Count 169 10^3/cmm (130-400); Red Blood Count 5.11 10^6/uL (4.1-5.3); Red Cell Distribution Width 13.2 % (12.1-15.1); White Blood Count 13.6 10^3/uL (4.0-10.0)
[2020-07-16 07:13] LABS: Alanine Aminotransferase 22 U/L (0-41); Albumin Level 3.3 g/dL (3.5-5.2); Alkaline Phosphatase 47 IU/L (40-130); Anion Gap 15.8 (5-19); Aspartate Amino Transferase 48 U/L (0-40); Blood Urea Nitrogen 24 mg/dL (8-23); Calcium 8.8 mg/dL (8.5-10.5); Carbon Dioxide 22 mmol/L (22-29); Chloride 106 mmol/L (98-107); Globulin 2.7 g/dL (1.3-4.6); Glomerular Filtration Rate 83.4 mL/min (90-130); Glucose 173 mg/dL (65-115); Osmolality Calculated 298 mOsm/kg (285-295); Potassium 3.8 mmol/L (3.5-5.1); Sodium 140 mmol/L (136-145); Total Bilirubin 0.4 mg/dL (0.15-1.2)
[2020-07-16 07:14] LABS: D Dimer <= 0.27 ug/mIFEU (0-0.59)
[2020-07-16 07:29] LABS: Glucose Point of Care 129 mg/dL (70-110)
[2020-07-16] MEDS: albuterol 8 gm MDI 2 PUFF INHALATION (07:45)
[2020-07-16 09:18] LABS: C Reactive Protein 21.6 mg/L (0.0-4.9)
[2020-07-16 09:28] LABS: Procalcitonin 0.09 ng/mL (0-0.5)
[2020-07-16] MEDS: pantoprazole DR 40 mg Tablet PO (09:35)
[2020-07-16] MEDS: lisinopril 20 mg Tablet 40 MG PO (09:35)
[2020-07-16] MEDS: ascorbic acid 500 mg Tablet PO (09:35)
[2020-07-16] MEDS: atorvastatin 40 mg Tablet PO (09:36)
[2020-07-16] MEDS: dexamethasone 4 mg/mL INJ 6 MG IVP (09:36)
[2020-07-16] MEDS: zinc gluconate 50 mg Tablet PO (09:36)
--- NOTE | 2020-07-16 09:53 | PC.NURSE ---
Up to Chair patient moved to bedside chair. during exertion, patient O2 dropped down to 78% on 10L high flow NC. nurse increased O2 to 12L high flow. Patient took 2 min to increase back to 91%. Respiratory therapist and notified. patient being placed on heated high flow. will continue to monitor
[2020-07-16 11:41] LABS: Glucose Point of Care 193 mg/dL (70-110)
--- NOTE | 2020-07-16 11:55 | PC.SOCIAL ---
IMM Page 2 of [facility] explained to patient's spouse, Rosey, by phone. She verbalizes understanding. Initialed, dated, and timed and will be sent to Medical Records to be uploaded to patient's EHR upon discharge.
[2020-07-16 16:38] LABS: Glucose Point of Care 325 mg/dL (70-110)
--- NOTE | 2020-07-16 18:45 | PC.NURSE ---
Received bedside report on patient from Monalisa Chaudhari RN. Assumed care at this time.
--- NOTE | 2020-07-16 18:50 | PM.PN ---
Subjective Subjective: Interval history: He was more short of breath today. He has been needing more oxygen. He has been trying to prone and has done a fairly good job of it staying prone for up to several hours, but does get heartburn subsequently, and needs to turn back. Denies any chest pain or pressure. Denies any headache, any numbness or weakness anywhere. No nausea vomiting or diarrhea. No abdominal pain or other complaints. Vitals/I&O/Wt Last Vital Signs Temp 98.7 F 07/16/20 10:00 Pulse 73 07/16/20 18:00 Resp 15 07/16/20 18:00 BP 129/78 07/16/20 18:00 Pulse Ox 91 07/16/20 18:00 07/16/20 07/16/20 07/16/20 06:59 14:59 22:59 Intake Total 250 / 1200 650 / 650 300 / 950 Output Total 300 / 1600 500 / 500 600 / 1100 Balance -50 / -400 150 / 150 -300 / -150 Physical Exam Const: COMMON NORMALS: no acute distress and patient oriented x3 HENMT: COMMON NORMALS: oropharynx normal Neck/C-Spine: COMMON NORMALS: no JVD Resp: COMMON NORMALS: normal respiratory effort AUSCULTATION: rales bilateral at the base OTHER: Somewhat reduced tidal volume, although air entry is decent. No wheezing. Cardio: COMMON NORMALS: no JVD, regular rhythm, S1 normal heart sound present, S2 normal heart sound present and No murmurs present (Cardio) RHYTHM: regular rhythm HEART SOUNDS: S1 normal heart sound present and S2 normal heart sound present GI: COMMON NORMALS: Normal to inspection, nondistended, normoactive bowel sounds present, Soft to palpation and non-tender PALPATION: Yes Soft to palpation Extremity: COMMON NORMALS: no joint enlargement and no pedal edema Neuro: COMMON NORMALS: patient oriented x3 and moves all extremities Skin: COMMON NORMALS: no rashes or lesions noted GENERAL SKIN EXAM: no rashes or lesions noted Data : 07/16/20 04:30 07/16/20 04:30 A&P Assessment and plan (1) Pneumonia due to COVID-19 virus: Continue treatment of respiratory failure with hypoxia. Switched over to high flow cannula. Continue oxygen support. Discussed with his . Will continue room September, dexamethasone at this time. Continue empiric antibiotic coverage due to severity of illness for possible superimposed bacterial pneumonia. Albuterol as needed Prone as much as possible IS Flutter valve Status: Acute (2) Acute respiratory failure: Supportive care with oxygen as above. Wean oxygen as tolerated Status: Acute (3) Acute kidney injury: Fluids discontinued. Renal function at baseline Status: Acute Additional A&P Information Elevated glucose. Hemoglobin A1c 6.7. Start sliding scale insulin. Coronary artery disease, stable currently History of atrial fibrillation. Currently in sinus rhythm. On anticoagulation already. History of reflux. Protonix Hyperlipidemia, continue statin Hypertension, continue antihypertensives History of renal stones Full code Xarelto will suffice for DVT prophylaxis Attestations Medical Necessity Statement*: Continue admission for assessment of management of severe COVID-19 pneumonia with acute respiratory failure with hypoxia. 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
--- NOTE | 2020-07-16 19:20 | PC.NURSE ---
Placed in uriel position.
[2020-07-16] MEDS: rivaroxaban 10 mg Tablet 20 MG PO (20:00)
[2020-07-16] MEDS: levofloxacin-dextrose 5 % 750 MG/150 ML PREMIX 150 MG IV (20:00)
--- NOTE | 2020-07-16 20:47 | PC.NURSE ---
Received report on patient from Monalisa Chaudhari RN. Assumed care at this time.
--- NOTE | 2020-07-16 20:56 | PC.NURSE ---
Patient stated that he needed to turn back over. Standby assistance while turning back over on his back. Sats dropped to 85% on HHFNC after repositioned, then gradually started going back up.
--- NOTE | 2020-07-16 21:15 | PC.NURSE ---
Placed in prone position.
[2020-07-16 21:50] LABS: Glucose Point of Care 185 mg/dL (70-110)
--- NOTE | 2020-07-16 21:50 | PC.NURSE ---
Patient turned back over on to his back.
[2020-07-17] VITALS (21 sets, daily range): BP systolic 113–153; BP diastolic 57–97; PULSE 64–90; RESP 10–28; TEMP 36.6–36.7; O2SAT 85–95
--- NOTE | 2020-07-17 00:12 | PC.NURSE ---
Patient requested to go back to prone position.
--- NOTE | 2020-07-17 00:49 | PC.NURSE ---
Patient positioned back onto his back. Stated I can't stay on my stomach very long because my back hurts.
--- NOTE | 2020-07-17 04:00 | PC.NURSE ---
Positioned back onto his stomach.
--- NOTE | 2020-07-17 04:30 | PC.NURSE ---
Repostioned back onto his back.
--- NOTE | 2020-07-17 06:10 | PC.NURSE ---
Patient requesting to lay back onto his stomach again.
[2020-07-17 06:50] LABS: Basophils % 0.2 %; Hematocrit 46.4 % (42.0-52.0); Hemoglobin 15.4 g/dL (11.7-16.6); Lymphocytes # 1.9 10^3/uL (0.8-4.8); Lymphocytes % 15.1 %; Mean Corpuscular HGB Conc 33.2 g/dL (30.0-36.0); Mean Corpuscular Hemoglobin 29.8 pg (28.0-34.0); Mean Corpuscular Volume 89.9 fL (80-94); Mean Platelet Volume 12.5 fL (7.4-10.4); Monocytes # 0.8 10^3/uL (0.2-0.9); Monocytes % 6.5 %; Neutrophils # 9.77 10^3/uL (1.8-7.7); Nucleated Red Blood Cells % 0 %; Platelet Count 147 10^3/cmm (130-400); Red Blood Count 5.16 10^6/uL (4.1-5.3); White Blood Count 12.7 10^3/uL (4.0-10.0)
[2020-07-17 07:11] LABS: Alanine Aminotransferase 27 U/L (0-41); Albumin Level 3.3 g/dL (3.5-5.2); Alkaline Phosphatase 53 IU/L (40-130); Aspartate Amino Transferase 54 U/L (0-40); Blood Urea Nitrogen 25 mg/dL (8-23); Calcium 8.3 mg/dL (8.5-10.5); Carbon Dioxide 20 mmol/L (22-29); Chloride 105 mmol/L (98-107); Globulin 2.6 g/dL (1.3-4.6); Glomerular Filtration Rate 95.6 mL/min (90-130); Glucose 163 mg/dL (65-115); Osmolality Calculated 296 mOsm/kg (285-295); Sodium 139 mmol/L (136-145); Total Bilirubin 0.7 mg/dL (0.15-1.2); Total Protein 5.9 g/dL (6.6-8.7)
[2020-07-17 07:13] LABS: Anion Gap 17.9 (5-19); Potassium 3.9 mmol/L (3.5-5.1)
[2020-07-17 07:18] LABS: Slide Review Slide Review Perform
[2020-07-17 07:50] LABS: Glucose Point of Care 162 mg/dL (70-110)
[2020-07-17] MEDS: dexamethasone 4 mg/mL INJ 6 MG IVP (08:22)
[2020-07-17] MEDS: zinc gluconate 50 mg Tablet PO (08:23)
[2020-07-17] MEDS: aspirin 81 mg EC Tablet PO (08:23)
[2020-07-17] MEDS: lisinopril 20 mg Tablet 40 MG PO (08:23)
[2020-07-17] MEDS: pantoprazole DR 40 mg Tablet PO (08:23)
[2020-07-17] MEDS: ascorbic acid 500 mg Tablet PO (08:24)
[2020-07-17] MEDS: atorvastatin 40 mg Tablet PO (08:24)
[2020-07-17] MEDS: fenofibrate 48 mg Tablet PO (09:27)
[2020-07-17 11:20] LABS: Glucose Point of Care 220 mg/dL (70-110)
--- NOTE | 2020-07-17 14:09 | PM.TDS ---
Transfer Summary Providers Date of Admission: 07/13/20 17:40 Date of Discharge: 07/17/20 Attending Provider at Admission: Remberto Arciniega MD Attending Provider at Transfer: Waqas Peguero Primary Care Provider: Willie Fine Jr, MD Anticipated Date of Transfer: Anticipated date of transfer: 07/17/20 Receiving Facility & Provider: Receiving Provider: [] Receiving facility: [] Diagnoses at Discharge Discharge Diagnosis (1) Pneumonia due to COVID-19 virus: Status: Acute (2) Acute respiratory failure: Status: Acute (3) Acute kidney injury: Status: Acute Other Information Additional DC diagnoses/information: Elevated glucose. Hemoglobin A1c 6.7. Start sliding scale insulin. Coronary artery disease, stable currently History of atrial fibrillation. Currently in sinus rhythm. On anticoagulation already. History of reflux. Protonix Hyperlipidemia, continue statin Hypertension, continue antihypertensives History of renal stones Reason for Visit Reason for Visit: SOB/ POSSIBLE COVID Hospital Course Hospital Course: Pleasant 70-year-old gentleman with history of coronary disease remote [place], atrial fibrillation following with cardiology, HTN, HLD, nephrolithiasis, GERD, was admitted after testing positive for COVID-19 on Wednesday 07/11, presented on 07/13 with cough, congestion, shortness of breath, nausea, vomiting and diarrhea. Rapid flu on presentation was negative. Rapid COVID-19 antigen here positive. Has been treated for COVID-19 pneumonia with Remdesivir, dexamethasone, oxygen support, albuterol inhaler, as well as empiric Levaquin for possible concomitant bacterial infection. Mild acute kidney injury on presentation creatinine 1.4 improved. He remained in sinus rhythm and was continued on Xarelto for his atrial fibrillation. He has had no chest pain or pressure, troponin was minimally elevated on presentation , without any rise, without suggestion of acute [place] on EKG. He has been trying to self prone. Despite treatment his oxygenation has been gradually worsening, initially requiring several liters on nasal cannula, subsequently needing high flow oxygen in the last several days, currently up to 40 L at 80% FiO2. Due to continued gradual decline in his oxygenation transfer to a higher level facility for additional treatment options were discussed with patient and his , both are agreeable, and he was kindly accepted by Dr Mcmahan and Dr Harley after discussion for additional care over at [facility] with consideration of possible convalescent plasma or other therapies. Physical Exam Const: COMMON NORMALS: no acute distress and patient oriented x3 HENMT: COMMON NORMALS: oropharynx normal Neck/C-Spine: COMMON NORMALS: no JVD Resp: COMMON NORMALS: normal respiratory effort AUSCULTATION: rales bilateral at the base (few) OTHER: Somewhat reduced tidal volume, although air entry is decent. No wheezing. Cardio: COMMON NORMALS: no JVD, regular rhythm, S1 normal heart sound present, S2 normal heart sound present and No murmurs present (Cardio) RHYTHM: regular rhythm HEART SOUNDS: S1 normal heart sound present and S2 normal heart sound present GI: COMMON NORMALS: Normal to inspection, nondistended, normoactive bowel sounds present, Soft to palpation and non-tender PALPATION: Yes Soft to palpation Extremity: COMMON NORMALS: no joint enlargement and no pedal edema Neuro: COMMON NORMALS: patient oriented x3 and moves all extremities Skin: COMMON NORMALS: no rashes or lesions noted GENERAL SKIN EXAM: no rashes or lesions noted TS Data Data Completed and Pending: Completed Studies During Hospitalization Category Date Time Status XR chest 1V gabriele ble [id number] Stat Exams 07/13/20 15:30 Completed Pending at discharge Category Date Time Status Complete Blood Co unt w/Auto AM LABS Lab 07/18/20 04:00 Ordered Complete Blood Co unt w/Auto AM LABS Lab 07/19/20 04:00 Ordered Comprehensive Met abolic Panel AM [place] BS Lab 07/18/20 04:00 Ordered Comprehensive Met abolic Panel AM [place] BS Lab 07/19/20 04:00 Ordered Labs from last 24 hours 07/17/20 07/17/20 07/17/20 11:09 07:25 04:45 WBC RBC Hgb Hct MCV MCH MCHC RDW Plt Count MPV Neut % (Auto) Lymph % (Auto) Barron % (Auto) Eos % (Auto) Baso % (Auto) Neut # (Auto) Lymph # (Auto) Barron # (Auto) Eos # (Auto) Baso # (Auto) Nucleated RBC % (a uto) Nucleated RBCs # Sodium 139 Potassium 3.9 Chloride 105 Carbon Dioxide 20 L Anion Gap 17.9 BUN 25 H Creatinine 0.8 GFR Calculation 95.6 Glucose 163 H POC Glucose 220 162 Calculated Osmolal ity 296 H Calcium 8.3 L Total Bilirubin 0.7 AST 54 H ALT 27 Alkaline Phosphata se 53 Total Protein 5.9 L Albumin 3.3 L Globulin 2.6 07/17/20 07/16/20 07/16/20 04:45 21:41 16:29 WBC 12.7 H RBC 5.16 Hgb 15.4 Hct 46.4 MCV 89.9 MCH 29.8 MCHC 33.2 RDW 13.0 Plt Count 147 MPV 12.5 H Neut % (Auto) 77.0 Lymph % (Auto) 15.1 Barron % (Auto) 6.5 Eos % (Auto) 0.0 Baso % (Auto) 0.2 Neut # (Auto) 9.77 H Lymph # (Auto) 1.9 Barron # (Auto) 0.8 Eos # (Auto) 0.0 Baso # (Auto) 0.0 Nucleated RBC % (a uto) 0 Nucleated RBCs # 0.0 Sodium Potassium Chloride Carbon Dioxide Anion Gap BUN Creatinine GFR Calculation Glucose POC Glucose 185 325 Calculated Osmolal ity Calcium Total Bilirubin AST ALT Alkaline Phosphata se Total Protein Albumin Globulin Vitals: Last Vital Signs Temp 98.1 F 07/17/20 12:00 Pulse 72 07/17/20 12:45 Resp 24 H 07/17/20 12:45 BP 132/77 07/17/20 12:00 Pulse Ox 92 07/17/20 12:45 TS Medications Medications Home Medications amlodipine 10 mg tablet 10 mg PO .every other day tab 11/24/19 [History Confirmed 07/13/20] atorvastatin 40 mg tablet 40 mg PO QDAY 11/24/19 [History Confirmed 07/13/20] nitroglycerin 0.4 mg sublingual tablet 0.4 mg SUBLINGUAL Q5M PRN 11/24/19 [History Confirmed 07/13/20] nitroglycerin 6.5 mg capsule,extended release 6.5 mg PO BID 11/24/19 [History Confirmed 07/13/20] ramipril 10 mg capsule 10 mg PO QDAY 11/24/19 [History Confirmed 07/13/20] fenofibrate nanocrystallized 48 mg tablet 48 mg PO .every other day #90 tab 02/20/20 [Rx Confirmed 07/13/20] rivaroxaban 20 mg tablet 20 mg PO DAILY #30 tab 05/14/20 [Rx Confirmed 07/13/20] aspirin [Aspirin Low Dose] 81 mg PO DAILY 07/13/20 [History Confirmed 07/13/20] cetirizine 10 mg PO DAILY 07/13/20 [History Confirmed 07/13/20] fluticasone propionate See Rx Instructions .ROUTE .COMPLEX 07/13/20 [History Confirmed 07/13/20] meclizine 25 mg PO TID 07/13/20 [History Confirmed 07/13/20] Active Medications Acetaminophen (Tylenol) 650 mg PO Q6H PRN PRN Reason: Mild/Mod Pain Or Temp >/= 101 Albuterol Sulfate (Ventolin) 2 puff INHALATION Q4H.RESPIRATORY PRN PRN Reason: SHORTNESS OF BREATH Last Admin: 07/16/20 07:45 Dose: 2 puff Documented by: Amlodipine Besylate (Norvasc) 10 mg PO .every other day [facility] Ascorbic Acid (Vitamin C) 500 mg PO DAILY [facility] Last Admin: 07/17/20 08:24 Dose: 500 mg Documented by: Aspirin (Aspirin Ec) 81 mg PO DAILY [facility] Last Admin: 07/17/20 08:39 Dose: Not Given Documented by: Atorvastatin Calcium (Lipitor) 40 mg PO DAILY [facility] Last Admin: 07/17/20 08:24 Dose: 40 mg Documented by: Dexamethasone (Decadron) 6 mg IVP Q24H [facility] Last Admin: 07/17/20 08:22 Dose: 6 mg Documented by: Dextrose (D50w) 25 ml IVP ONCE PRN; Protocol PRN Reason: hypoglycemia protocol Dextrose (D50w) 50 ml IVP PRN PRN; Protocol PRN Reason: hypoglycemia protocol Fenofibrate (Tricor) 48 mg PO Q48H [facility] Last Admin: 07/17/20 09:27 Dose: 48 mg Documented by: Glucagon (Glucagen) 1 mg IM ONCE PRN; Protocol PRN Reason: Adult Acute Hypoglycemia Prot. remdesivir (EUA) 100 mg/ (Sodium Chloride) 100 mls @ 100 mls/hr IV Q24H [facility] Stop: 07/17/20 16:59 Last Infusion: 07/17/20 07:29 Dose: Infused Documented by: Levofloxacin/Dextrose (Levaquin-D5w) 750 mg in 150 mls @ 100 mls/hr IV Q24H [facility]; Protocol Last Infusion: 07/17/20 07:29 Dose: Infused Documented by: Dextrose (D5w) 500 mls @ 100 mls/hr IV ONCE PRN; Protocol PRN Reason: Adult Acute Hypoglycemia Prot Insulin Aspart (Novolog) 0 unit SUBCUT WM&BEDTIME [facility]; Protocol Last Admin: 07/17/20 11:20 Dose: 4 unit Documented by: Lisinopril (Prinivil) 40 mg PO DAILY [facility] Last Admin: 07/17/20 08:23 Dose: 40 mg Documented by: Non-Formulary Medication (Nitroglycerin [Nitro-Time]) 6.5 mg PO BID [facility] Last Admin: 07/17/20 09:27 Dose: 6.5 mg Documented by: Ondansetron HCl (Zofran) 4 mg IVP Q6H PRN PRN Reason: vomiting, or N/V if npo Last Admin: 07/15/20 03:51 Dose: 4 mg Documented by: Pantoprazole Sodium (Protonix) 40 mg PO DAILY [facility] Last Admin: 07/17/20 08:23 Dose: 40 mg Documented by: Rivaroxaban (Xarelto) 20 mg PO Q24H [facility] Last Admin: 07/16/20 20:00 Dose: 20 mg Documented by: Zinc Gluconate (Zinc Gluconate) 50 mg PO DAILY [facility] Last Admin: 07/17/20 08:23 Dose: 50 mg Documented by: Discharge Plan Discharge Patient Disposition: Xfer Short-Term Hosp Condition: Stable Prescriptions: No Action nitroglycerin [Nitrostat] 0.4 mg tablet, sublingual 0.4 mg SUBLINGUAL Q5M PRN (Reason: CHEST PAINS) RF: 0 atorvastatin [Lipitor] 40 mg tablet 40 mg PO QDAY RF: 0 ramipril 10 mg capsule 10 mg PO QDAY RF: 0 nitroglycerin [Nitro-Time] 6.5 mg capsule, extended release 6.5 mg PO BID RF: 0 amlodipine 10 mg tablet 10 mg PO .every other day RF: 0 fenofibrate nanocrystallized [Tricor] 48 mg tablet 48 mg PO .every other day Qty: 90 RF: 3 rivaroxaban [Xarelto] 20 mg tablet 20 mg PO DAILY Qty: 30 RF: 5 cetirizine 10 mg tablet 10 mg PO DAILY RF: 0 Aspirin Low Dose 81 mg Tablet,Delayed Release (Dr/Ec) 81 mg PO DAILY RF: 0 meclizine 25 mg tablet 25 mg PO TID RF: 0 fluticasone propionate 50 mcg/actuation spray,suspension See Rx Instructions .ROUTE .COMPLEX RF: 0 Referrals: Willie Fine Jr, MD [Primary Care Provider] - 2 weeks Transfer Attestations Time Spent in Transfer Care*: greater than 30 min Quality Metrics Clinical Quality Measures: During this hospital stay, did patient experience: None Coding Level of Care Code Acute Insurance Counselor for [facility] Fwd Diagnoses Pneumonia due to COVID-19 virus U07.1; J12.89 Acute respiratory failure J96.00 Acute kidney injury N17.9
--- NOTE | 2020-07-17 14:50 | PC.NURSE ---
Report called and given to [facility] in [place], [place], to REJI Michaels.
[2020-07-17 15:40] LABS: Glucose Point of Care 232 mg/dL (70-110)
--- NOTE | 2020-08-07 14:29 | PC.SOCIAL ---
Spoke with family of the patient they stated that the patient in the hospital in [place] a week from Thursday.
== END 2020-07-17 16:54 | disposition short-term general hospital (02) | DRG 177 ==
LOC: ER 17:22 → ICU 17:58
PROVIDERS: Admitting Provider Internal Medicine; Emergency Provider Emergency Medicine; PCP Family Medicine; Visit Provider Internal Medicine
DX: U07.1 COVID-19 (principal); J96.00 Acute respiratory failure, unspecified whether with hypoxia or hypercapnia; J12.89 Other viral pneumonia; N17.9 Acute kidney failure, unspecified; I25.10 Atherosclerotic heart disease of native coronary artery without angina pectoris; E78.5 Hyperlipidemia, unspecified; I10 Essential (primary) hypertension; I48.91 Unspecified atrial fibrillation; Z79.01 Long term (current) use of anticoagulants; I25.2 Old myocardial infarction; K21.9 Gastro-esophageal reflux disease without esophagitis; Z79.82 Long term (current) use of aspirin; Z87.891 Personal history of nicotine dependence; F10.20 Alcohol dependence, uncomplicated
CPT/HCPCS: 12345; 36415; 36416; 36600; 71045; 80051; 80053; 81001; 82550; 82810; 82962; 83036; 83605; 83615; 83735; 83986; 84145; 84484; 85025; 85378; 85610; 86140; 87426; 87804; 93005; 94640; 96372; 96375; 99283; J1100; J1815; J1956; J2405; J3535; J7030